=== PATIENT | male | born 1950 | race Caucasian/White ===

== ENCOUNTER 2018-10-07 09:19 | Inpatient (IN) | payer MEDICARE, OTHER ==
[2018-10-07 09:50] LABS: BASO % 0.4 % (0.0-1.0); EOS # 0.1 10^3/uL (0.0-0.50); EOS % 1.7 % (0.0-3.0); HEMATOCRIT 48.1 % (42.0-52.0); HEMOGLOBIN 16.2 g/dl (13.5-17.5); IMMATURE GRANULOCYTE % 0.4 % (0-3.0); LYMPH # 1.6 10^3/uL (1.5-4.5); MEAN CORPUSCULAR HGB CONC 33.7 g/dl (32.0-36.5); MEAN CORPUSCULAR VOLUME 92.1 fl (80.0-96.0); MONO # 0.5 10^3/uL (0.0-0.8); MONO % 6.7 % (0.0-5.0); NEUTROPHILS # 5.2 10^3/uL (1.8-7.7); NEUTROPHILS % 69.8 % (36.0-66.0); PLATELET COUNT, AUTOMATED 269 10^3/uL (150-450); RED BLOOD COUNT 5.22 10^6/uL (4.30-6.10); RED CELL DISTRIBUTION WIDTH 13.1 % (11.5-14.5); WHITE BLOOD COUNT 7.4 10^3/uL (4.0-10.0)
[2018-10-07] MEDS: methylPREDNISolone INJ 125 MG/2 ML VIAL (J2930) IV ×2 (10:18→17:08)
[2018-10-07] MEDS: IPRATROPIUM 0.5MG/ALBUTEROL 2.5MG INH SOL UD 3ML (DUONEB)(J7620) NEB ×5 (10:20→20:00)
[2018-10-07 10:26] LABS: ABG BASE EXCESS 2.2 (-2.0-2.0); ABG HCO3 27.9 MEQ/L (22.0-26.0); ABG O2 SATURATION 94.1 % (95.0-99.0); ABG PARTIAL PRESSURE CO2 47.1 mmHg (35.0-45.0); ABG PARTIAL PRESSURE O2 67.1 mmHg (75.0-100.0); ABG STANDARD HCO3 26.3 MEQ/L (22.0-26.0); ABG TOTAL CO2 29.4 MEQ/L (23.0-31.0); ABG pH (ARTERIAL) 7.391 UNITS (7.350-7.450)
[2018-10-07 10:55] LABS: ANION GAP 5 MEQ/L (8-16); BLOOD UREA NITROGEN 13 MG/DL (7-18); CALCIUM LEVEL 9.3 MG/DL (8.8-10.2); CARBON DIOXIDE LEVEL 31 MEQ/L (21-32); CHLORIDE LEVEL 105 MEQ/L (98-107); CPK CREATINE PHOSPHOKINASE 152 U/L (39-308); CREATININE FOR GFR 0.93 MG/DL (0.70-1.30); GLOMERULAR FILTRATION RATE > 60.0 (>49); GLUCOSE, FASTING 88 MG/DL (70-100); MB/CK RELATIVE INDEX 2.43 (< OR =4); NT-PRO BNP 312 PG/ML (<125); POTASSIUM SERUM 4.1 MEQ/L (3.5-5.1); SODIUM LEVEL 141 MEQ/L (136-145); TROPONIN I < 0.02 NG/ML (< 0.10)
[2018-10-07] MEDS ORDERED: ISOVUE-370 76% 100ML VIAL (Q9967) As Ordered (11:44)
[2018-10-07] MEDS ORDERED: IPRATROPIUM 0.5MG/ALBUTEROL 2.5MG INH SOL UD 3ML (DUONEB)(J7620) NEB (14:00)
[2018-10-07] MEDS: SERTRALINE HCL 50 MG TAB PO (15:35)
[2018-10-07] MEDS: ASPIRIN 81 MG ENTERIC TAB PO (15:35)
[2018-10-07] MEDS: LEVOTHYROXINE 50MCG TABLET (0.05MG) PO (15:45)
[2018-10-07] MEDS: OMEPRAZOLE 20 MG CAP PO (15:46)
[2018-10-07] MEDS: FUROSEMIDE 40 MG TAB PO (15:46)
[2018-10-07] MEDS: TAMSULOSIN 0.4 MG CAP PO (15:46)
[2018-10-07] MEDS: ATORVASTATIN 20 MG TAB PO (15:46)
[2018-10-07] MEDS: LISINOPRIL 20 MG TAB PO (15:46)
[2018-10-07] MEDS: cefTRIAXone SOD 1 GM in D5W MINI-BAG PLUS 50 ML IV (15:47)
[2018-10-07] MEDS: ENOXAPARIN 40 MG/0.4 ML SYRINGE (J1650) SC (15:47)
[2018-10-07] MEDS: AZITHROMYCIN INJ 500 MG, VIAL MATE ADAPTER 1 EACH in D5W 250 ML IV (17:06)
[2018-10-07 18:37] LABS: CPK CREATINE PHOSPHOKINASE 112 U/L (39-308); MB/CK RELATIVE INDEX 2.68 (< OR =4); TROPONIN I < 0.02 NG/ML (< 0.10)
[2018-10-07] MEDS: METOPROLOL TART 25 MG TABLET PO (20:37)
[2018-10-07] MEDS: SYMBICORT 160/4.5MCG INHALER 6GM INH (21:25)
[2018-10-08] MEDS: CALCIUM CARBONATE 500 MG CHEW U/D PO (00:52)
[2018-10-08] MEDS: OMEPRAZOLE 20 MG CAP PO ×2 (00:52→09:16)
[2018-10-08] MEDS: IPRATROPIUM 0.5MG/ALBUTEROL 2.5MG INH SOL UD 3ML (DUONEB)(J7620) NEB ×4 (01:05→19:41)
[2018-10-08 02:23] LABS: CPK CREATINE PHOSPHOKINASE 119 U/L (39-308); MB/CK RELATIVE INDEX 2.27 (< OR =4); TROPONIN I < 0.02 NG/ML (< 0.10)
[2018-10-08] MEDS: methylPREDNISolone INJ 125 MG/2 ML VIAL (J2930) IV (02:28)
[2018-10-08] MEDS: cefTRIAXone SOD 1 GM in D5W MINI-BAG PLUS 50 ML IV ×2 (04:36→15:41)
[2018-10-08] MEDS: LEVOTHYROXINE 50MCG TABLET (0.05MG) PO (05:57)
[2018-10-08 06:35] LABS: BASO % 0.1 % (0.0-1.0); HEMATOCRIT 44.6 % (42.0-52.0); HEMOGLOBIN 15.2 g/dl (13.5-17.5); IMMATURE GRANULOCYTE % 0.5 % (0-3.0); LYMPH # 1.2 10^3/uL (1.5-4.5); LYMPH % 6.1 % (24.0-44.0); MEAN CORPUSCULAR HEMOGLOBIN 30.8 pg (27.0-33.0); MEAN CORPUSCULAR HGB CONC 34.1 g/dl (32.0-36.5); MEAN CORPUSCULAR VOLUME 90.5 fl (80.0-96.0); MONO # 0.3 10^3/uL (0.0-0.8); MONO % 1.5 % (0.0-5.0); NEUTROPHILS # 17.9 10^3/uL (1.8-7.7); NEUTROPHILS % 91.8 % (36.0-66.0); PLATELET COUNT, AUTOMATED 298 10^3/uL (150-450); RED BLOOD COUNT 4.93 10^6/uL (4.30-6.10); RED CELL DISTRIBUTION WIDTH 13.3 % (11.5-14.5); WHITE BLOOD COUNT 19.5 10^3/uL (4.0-10.0)
[2018-10-08 06:59] LABS: ALBUMIN 3.4 GM/DL (3.2-5.2); ALBUMIN/GLOBULIN RATIO 0.97 (1.00-1.93); ALKALINE PHOSPHATASE 126 U/L (45-117); ALT/SGPT 25 U/L (12-78); ANION GAP 9 MEQ/L (8-16); AST/SGOT 13 U/L (7-37); BILIRUBIN,TOTAL 0.3 MG/DL (0.2-1.0); BLOOD UREA NITROGEN 13 MG/DL (7-18); CALCIUM LEVEL 9.1 MG/DL (8.8-10.2); CARBON DIOXIDE LEVEL 25 MEQ/L (21-32); CHLORIDE LEVEL 106 MEQ/L (98-107); CREATININE FOR GFR 0.92 MG/DL (0.70-1.30); GLOMERULAR FILTRATION RATE > 60.0 (>49); GLUCOSE, FASTING 160 MG/DL (70-100); POTASSIUM SERUM 4.3 MEQ/L (3.5-5.1); SODIUM LEVEL 140 MEQ/L (136-145); TOTAL PROTEIN 6.9 GM/DL (6.4-8.2)
[2018-10-08] MEDS: SYMBICORT 160/4.5MCG INHALER 6GM INH ×2 (08:06→19:49)
[2018-10-08] MEDS: ENOXAPARIN 40 MG/0.4 ML SYRINGE (J1650) SC (09:15)
[2018-10-08] MEDS: ATORVASTATIN 20 MG TAB PO (09:16)
[2018-10-08] MEDS: ASPIRIN 81 MG ENTERIC TAB PO (09:16)
[2018-10-08] MEDS: SERTRALINE HCL 50 MG TAB PO (09:16)
[2018-10-08] MEDS: TAMSULOSIN 0.4 MG CAP PO (09:16)
[2018-10-08] MEDS: METOPROLOL TART 25 MG TABLET PO ×2 (09:19→21:00)
[2018-10-08] MEDS: LISINOPRIL 20 MG TAB PO (09:19)
[2018-10-08] MEDS ORDERED: GI COCKTAIL 50ML BTL(HYOSCYAMINE/MAALOX/LIDOCAINE VISCOUS)(1:3:1) PO (10:45)
[2018-10-08] MEDS: methylPREDNISolone INJ 40 MG/1 ML VIAL (J2920) IV (14:15)
[2018-10-08] MEDS: AZITHROMYCIN INJ 500 MG, VIAL MATE ADAPTER 1 EACH in D5W 250 ML IV (16:22)
[2018-10-08] MEDS ORDERED: PILL CRUSHER/CUTTER 1 EACH XX (20:45)
[2018-10-09] MEDS: IPRATROPIUM 0.5MG/ALBUTEROL 2.5MG INH SOL UD 3ML (DUONEB)(J7620) NEB ×4 (02:19→20:00)
[2018-10-09] MEDS: methylPREDNISolone INJ 40 MG/1 ML VIAL (J2920) IV ×2 (02:22→14:41)
[2018-10-09] MEDS: LEVOTHYROXINE 50MCG TABLET (0.05MG) PO (05:54)
[2018-10-09 07:00] LABS: BASO % 0.1 % (0.0-1.0); EOS % 0.1 % (0.0-3.0); HEMATOCRIT 43.5 % (42.0-52.0); HEMOGLOBIN 14.5 g/dl (13.5-17.5); IMMATURE GRANULOCYTE % 0.5 % (0-3.0); LYMPH # 1.2 10^3/uL (1.5-4.5); LYMPH % 6.9 % (24.0-44.0); MEAN CORPUSCULAR HEMOGLOBIN 30.6 pg (27.0-33.0); MEAN CORPUSCULAR HGB CONC 33.3 g/dl (32.0-36.5); MEAN CORPUSCULAR VOLUME 91.8 fl (80.0-96.0); MONO # 0.4 10^3/uL (0.0-0.8); MONO % 2.1 % (0.0-5.0); NEUTROPHILS # 15.7 10^3/uL (1.8-7.7); NEUTROPHILS % 90.3 % (36.0-66.0); PLATELET COUNT, AUTOMATED 267 10^3/uL (150-450); RED BLOOD COUNT 4.74 10^6/uL (4.30-6.10); RED CELL DISTRIBUTION WIDTH 13.6 % (11.5-14.5); WHITE BLOOD COUNT 17.4 10^3/uL (4.0-10.0)
[2018-10-09 07:25] LABS: ALBUMIN 3.3 GM/DL (3.2-5.2); ALBUMIN/GLOBULIN RATIO 1.06 (1.00-1.93); ALKALINE PHOSPHATASE 108 U/L (45-117); ALT/SGPT 23 U/L (12-78); ANION GAP 6 MEQ/L (8-16); AST/SGOT 15 U/L (7-37); BILIRUBIN,TOTAL 0.3 MG/DL (0.2-1.0); BLOOD UREA NITROGEN 15 MG/DL (7-18); CALCIUM LEVEL 8.9 MG/DL (8.8-10.2); CARBON DIOXIDE LEVEL 26 MEQ/L (21-32); CHLORIDE LEVEL 107 MEQ/L (98-107); CREATININE FOR GFR 0.93 MG/DL (0.70-1.30); GLOMERULAR FILTRATION RATE > 60.0 (>49); GLUCOSE, FASTING 140 MG/DL (70-100); POTASSIUM SERUM 3.8 MEQ/L (3.5-5.1); SODIUM LEVEL 139 MEQ/L (136-145); TOTAL PROTEIN 6.4 GM/DL (6.4-8.2)
[2018-10-09] MEDS: ATORVASTATIN 20 MG TAB PO (08:53)
[2018-10-09] MEDS: LISINOPRIL 20 MG TAB PO (08:53)
[2018-10-09] MEDS: TAMSULOSIN 0.4 MG CAP PO (08:54)
[2018-10-09] MEDS: METOPROLOL TART 25 MG TABLET PO ×2 (08:54→20:51)
[2018-10-09] MEDS: ASPIRIN 81 MG ENTERIC TAB PO (08:54)
[2018-10-09] MEDS: SERTRALINE HCL 50 MG TAB PO (08:54)
[2018-10-09] MEDS: OMEPRAZOLE 20 MG CAP PO (08:54)
[2018-10-09] MEDS: ENOXAPARIN 40 MG/0.4 ML SYRINGE (J1650) SC (08:55)
[2018-10-09] MEDS: SYMBICORT 160/4.5MCG INHALER 6GM INH ×2 (09:34→21:10)
[2018-10-09] MEDS: guaiFENesin ER 600 MG TAB PO ×2 (12:32→20:51)
[2018-10-09] MEDS: FUROSEMIDE 40 MG/4 ML VIAL (J1940) IV (12:33)
[2018-10-09] MEDS: AZITHROMYCIN INJ 500 MG, VIAL MATE ADAPTER 1 EACH in D5W 250 ML IV (17:17)
[2018-10-10] MEDS: IPRATROPIUM 0.5MG/ALBUTEROL 2.5MG INH SOL UD 3ML (DUONEB)(J7620) NEB ×5 (02:00→21:35)
[2018-10-10] MEDS: methylPREDNISolone INJ 40 MG/1 ML VIAL (J2920) IV ×2 (02:24→14:52)
[2018-10-10] MEDS: LEVOTHYROXINE 50MCG TABLET (0.05MG) PO (05:58)
[2018-10-10 06:47] LABS: BASO % 0.1 % (0.0-1.0); HEMOGLOBIN 15.6 g/dl (13.5-17.5); IMMATURE GRANULOCYTE % 0.6 % (0-3.0); LYMPH # 1.4 10^3/uL (1.5-4.5); MEAN CORPUSCULAR HEMOGLOBIN 31.2 pg (27.0-33.0); MEAN CORPUSCULAR HGB CONC 33.2 g/dl (32.0-36.5); MONO # 0.5 10^3/uL (0.0-0.8); MONO % 3.1 % (0.0-5.0); NEUTROPHILS # 13.4 10^3/uL (1.8-7.7); NEUTROPHILS % 87.2 % (36.0-66.0); PLATELET COUNT, AUTOMATED 272 10^3/uL (150-450); RED CELL DISTRIBUTION WIDTH 13.7 % (11.5-14.5); WHITE BLOOD COUNT 15.3 10^3/uL (4.0-10.0)
[2018-10-10 07:18] LABS: ALBUMIN 3.4 GM/DL (3.2-5.2); ALBUMIN/GLOBULIN RATIO 1.03 (1.00-1.93); ALKALINE PHOSPHATASE 111 U/L (45-117); ALT/SGPT 26 U/L (12-78); ANION GAP 5 MEQ/L (8-16); AST/SGOT 13 U/L (7-37); BILIRUBIN,TOTAL 0.4 MG/DL (0.2-1.0); BLOOD UREA NITROGEN 23 MG/DL (7-18); CARBON DIOXIDE LEVEL 32 MEQ/L (21-32); CHLORIDE LEVEL 104 MEQ/L (98-107); CREATININE FOR GFR 0.98 MG/DL (0.70-1.30); GLOMERULAR FILTRATION RATE > 60.0 (>49); GLUCOSE, FASTING 118 MG/DL (70-100); POTASSIUM SERUM 4.4 MEQ/L (3.5-5.1); SODIUM LEVEL 141 MEQ/L (136-145); TOTAL PROTEIN 6.7 GM/DL (6.4-8.2)
[2018-10-10] MEDS: SYMBICORT 160/4.5MCG INHALER 6GM INH ×2 (07:29→19:42)
[2018-10-10] MEDS: ASPIRIN 81 MG ENTERIC TAB PO (08:57)
[2018-10-10] MEDS: ATORVASTATIN 20 MG TAB PO (08:57)
[2018-10-10] MEDS: TAMSULOSIN 0.4 MG CAP PO (08:57)
[2018-10-10] MEDS: LISINOPRIL 20 MG TAB PO (09:01)
[2018-10-10] MEDS: OMEPRAZOLE 20 MG CAP PO (09:01)
[2018-10-10] MEDS: guaiFENesin ER 600 MG TAB PO ×2 (09:01→21:14)
[2018-10-10] MEDS: METOPROLOL TART 25 MG TABLET PO ×2 (09:01→21:14)
[2018-10-10] MEDS: ENOXAPARIN 40 MG/0.4 ML SYRINGE (J1650) SC (09:02)
[2018-10-10] MEDS: SERTRALINE HCL 50 MG TAB PO (09:02)
[2018-10-10] MEDS: AZITHROMYCIN INJ 500 MG, VIAL MATE ADAPTER 1 EACH in D5W 250 ML IV (16:47)
[2018-10-11] MEDS: methylPREDNISolone INJ 40 MG/1 ML VIAL (J2920) IV (02:49)
[2018-10-11] MEDS: LEVOTHYROXINE 50MCG TABLET (0.05MG) PO (06:37)
[2018-10-11 07:11] LABS: BASO % 0.1 % (0.0-1.0); EOS % 0.2 % (0.0-3.0); HEMATOCRIT 46.5 % (42.0-52.0); HEMOGLOBIN 15.8 g/dl (13.5-17.5); IMMATURE GRANULOCYTE % 0.4 % (0-3.0); LYMPH # 1.3 10^3/uL (1.5-4.5); LYMPH % 9.9 % (24.0-44.0); MEAN CORPUSCULAR HEMOGLOBIN 31.2 pg (27.0-33.0); MEAN CORPUSCULAR VOLUME 91.9 fl (80.0-96.0); MONO # 0.4 10^3/uL (0.0-0.8); MONO % 3.1 % (0.0-5.0); NEUTROPHILS # 11.6 10^3/uL (1.8-7.7); NEUTROPHILS % 86.3 % (36.0-66.0); PLATELET COUNT, AUTOMATED 277 10^3/uL (150-450); RED BLOOD COUNT 5.06 10^6/uL (4.30-6.10); RED CELL DISTRIBUTION WIDTH 13.6 % (11.5-14.5); WHITE BLOOD COUNT 13.4 10^3/uL (4.0-10.0)
[2018-10-11 07:36] LABS: ALBUMIN 3.3 GM/DL (3.2-5.2); ALBUMIN/GLOBULIN RATIO 1.03 (1.00-1.93); ALKALINE PHOSPHATASE 110 U/L (45-117); ALT/SGPT 29 U/L (12-78); ANION GAP 6 MEQ/L (8-16); AST/SGOT 10 U/L (7-37); BILIRUBIN,TOTAL 0.6 MG/DL (0.2-1.0); BLOOD UREA NITROGEN 23 MG/DL (7-18); CALCIUM LEVEL 8.4 MG/DL (8.8-10.2); CARBON DIOXIDE LEVEL 28 MEQ/L (21-32); CHLORIDE LEVEL 108 MEQ/L (98-107); CREATININE FOR GFR 0.95 MG/DL (0.70-1.30); GLOMERULAR FILTRATION RATE > 60.0 (>49); GLUCOSE, FASTING 112 MG/DL (70-100); SODIUM LEVEL 142 MEQ/L (136-145); TOTAL PROTEIN 6.5 GM/DL (6.4-8.2)
[2018-10-11] MEDS: IPRATROPIUM 0.5MG/ALBUTEROL 2.5MG INH SOL UD 3ML (DUONEB)(J7620) NEB ×3 (07:40→20:08)
[2018-10-11] MEDS: SYMBICORT 160/4.5MCG INHALER 6GM INH ×2 (07:41→20:08)
[2018-10-11] MEDS: FUROSEMIDE 20 MG/2 ML VIAL (J1940) IV (09:17)
[2018-10-11] MEDS: ENOXAPARIN 40 MG/0.4 ML SYRINGE (J1650) SC (09:18)
[2018-10-11] MEDS: ATORVASTATIN 20 MG TAB PO (09:18)
[2018-10-11] MEDS: METOPROLOL TART 25 MG TABLET PO ×2 (09:22→20:20)
[2018-10-11] MEDS: TAMSULOSIN 0.4 MG CAP PO (09:23)
[2018-10-11] MEDS: SERTRALINE HCL 50 MG TAB PO (09:23)
[2018-10-11] MEDS: predniSONE 20 MG TAB PO ×2 (09:23→20:19)
[2018-10-11] MEDS: ASPIRIN 81 MG ENTERIC TAB PO (09:23)
[2018-10-11] MEDS: OMEPRAZOLE 20 MG CAP PO (09:23)
[2018-10-11] MEDS: LISINOPRIL 20 MG TAB PO (09:24)
[2018-10-11] MEDS: guaiFENesin ER 600 MG TAB PO ×2 (09:24→20:20)
[2018-10-11] MEDS: AZITHROMYCIN INJ 500 MG, VIAL MATE ADAPTER 1 EACH in D5W 250 ML IV (17:34)
[2018-10-11] MEDS: POLYVINYL ALCOHOL OPHTH SOLN 15 ML(LIQUITEARS) OU (20:30)
[2018-10-12] MEDS: LEVOTHYROXINE 50MCG TABLET (0.05MG) PO (06:27)
[2018-10-12 06:45] LABS: BASO % 0.1 % (0.0-1.0); HEMATOCRIT 48.2 % (42.0-52.0); HEMOGLOBIN 16.4 g/dl (13.5-17.5); IMMATURE GRANULOCYTE % 0.6 % (0-3.0); LYMPH # 1.6 10^3/uL (1.5-4.5); LYMPH % 11.5 % (24.0-44.0); MEAN CORPUSCULAR HEMOGLOBIN 31.4 pg (27.0-33.0); MEAN CORPUSCULAR VOLUME 92.3 fl (80.0-96.0); MONO # 0.6 10^3/uL (0.0-0.8); MONO % 4.4 % (0.0-5.0); NEUTROPHILS # 11.6 10^3/uL (1.8-7.7); NEUTROPHILS % 83.4 % (36.0-66.0); PLATELET COUNT, AUTOMATED 260 10^3/uL (150-450); RED BLOOD COUNT 5.22 10^6/uL (4.30-6.10); RED CELL DISTRIBUTION WIDTH 13.3 % (11.5-14.5); WHITE BLOOD COUNT 13.9 10^3/uL (4.0-10.0)
[2018-10-12 07:15] LABS: ALBUMIN 3.3 GM/DL (3.2-5.2); ALBUMIN/GLOBULIN RATIO 1.18 (1.00-1.93); ALKALINE PHOSPHATASE 112 U/L (45-117); ALT/SGPT 29 U/L (12-78); ANION GAP 8 MEQ/L (8-16); AST/SGOT 9 U/L (7-37); BILIRUBIN,TOTAL 0.4 MG/DL (0.2-1.0); BLOOD UREA NITROGEN 23 MG/DL (7-18); CALCIUM LEVEL 8.3 MG/DL (8.8-10.2); CARBON DIOXIDE LEVEL 26 MEQ/L (21-32); CHLORIDE LEVEL 109 MEQ/L (98-107); CREATININE FOR GFR 1.01 MG/DL (0.70-1.30); GLOMERULAR FILTRATION RATE > 60.0 (>49); GLUCOSE, FASTING 111 MG/DL (70-100); POTASSIUM SERUM 4.3 MEQ/L (3.5-5.1); SODIUM LEVEL 143 MEQ/L (136-145); TOTAL PROTEIN 6.1 GM/DL (6.4-8.2)
[2018-10-12] MEDS: SYMBICORT 160/4.5MCG INHALER 6GM INH (07:29)
[2018-10-12] MEDS: IPRATROPIUM 0.5MG/ALBUTEROL 2.5MG INH SOL UD 3ML (DUONEB)(J7620) NEB (07:29)
[2018-10-12] MEDS: POLYVINYL ALCOHOL OPHTH SOLN 15 ML(LIQUITEARS) OU (08:50)
[2018-10-12] MEDS: ATORVASTATIN 20 MG TAB PO (08:51)
[2018-10-12] MEDS: guaiFENesin ER 600 MG TAB PO (08:52)
[2018-10-12] MEDS: ACETAMINOPHEN TAB 650MG DOSE (2X325MG) PO (08:52)
[2018-10-12] MEDS: ASPIRIN 81 MG ENTERIC TAB PO (08:52)
[2018-10-12] MEDS: predniSONE 20 MG TAB PO (08:52)
[2018-10-12] MEDS: TAMSULOSIN 0.4 MG CAP PO (08:52)
[2018-10-12] MEDS: SERTRALINE HCL 50 MG TAB PO (08:53)
[2018-10-12] MEDS: METOPROLOL TART 25 MG TABLET PO (08:59)
[2018-10-12] MEDS: LISINOPRIL 20 MG TAB PO (08:59)
[2018-10-12] MEDS: ENOXAPARIN 40 MG/0.4 ML SYRINGE (J1650) SC (09:00)
[2018-10-12] MEDS: OMEPRAZOLE 20 MG CAP PO (09:00)
== END 2018-10-12 11:00 | disposition home or self-care (01) | DRG 191 ==
LOC: M PED 10-08 18:35 → M ED 09:19 → M ED INP 14:00 → M MSPAV 15:19
DX: J44.1 Chronic obstructive pulmonary disease with (acute) exacerbation (principal); I50.30 Unspecified diastolic (congestive) heart failure; Z68.41 Body mass index [BMI] 40.0-44.9, adult; I11.0 Hypertensive heart disease with heart failure; E66.9 Obesity, unspecified; K21.9 Gastro-esophageal reflux disease without esophagitis; F17.210 Nicotine dependence, cigarettes, uncomplicated; E03.9 Hypothyroidism, unspecified; F32.9 Major depressive disorder, single episode, unspecified; I25.10 Atherosclerotic heart disease of native coronary artery without angina pectoris; N40.0 Benign prostatic hyperplasia without lower urinary tract symptoms; E78.5 Hyperlipidemia, unspecified; G47.33 Obstructive sleep apnea (adult) (pediatric); Z86.718 Personal history of other venous thrombosis and embolism; Z95.9 Presence of cardiac and vascular implant and graft, unspecified; Z79.51 Long term (current) use of inhaled steroids; Z79.82 Long term (current) use of aspirin; Z79.899 Other long term (current) drug therapy

== ENCOUNTER 2019-03-10 08:37 | Emergency (ER) | payer MEDICARE, OTHER ==
[~2019-03-10] VITALS: Ht 172.7 cm; Wt 118.2 kg
[~2019-03-10 08:37] MED LIST: ALBU0.084 INH; ASPI81TA24 PO; ASPI81TA26 PO; ATOR80TA59 PO; CETI10TA PO; COMBAER6 INH; FLOM0.4C39 PO; FURO40TA2 PO; IBUP80TA PO; LEVO50TA5 PO; LIPI1TAB2 PO; LISI-538 PO; LISI40TA PO; METO-1 PO; METO1TAB32 PO; METO25TA4 PO; NEUR600T PO; OMEP20CA3 PO; PRED10TA2 PO; PRIL20CA PO; PROSCAR PO; SERT-138 PO; SYMB16INH INH; TYLE325T5 PO; VENTAER INH; ZOLO50TA PO
[2019-03-10] MEDS ORDERED: methylPREDNISolone INJ 125 MG/2 ML VIAL (J2930) IV ONE (09:00)
[2019-03-10] MEDS: IPRATROPIUM 0.5MG/ALBUTEROL 2.5MG INH SOL UD 3ML (DUONEB)(J7620) NEB PRN ×3 (09:16→09:54)
[2019-03-10 09:22] LABS: ABG HCO3 26.6 MEQ/L (22.0-26.0); ABG PARTIAL PRESSURE CO2 41.5 mmHg (35.0-45.0); ABG PARTIAL PRESSURE O2 75.3 mmHg (75.0-100.0); ABG STANDARD HCO3 26.2 MEQ/L (22.0-26.0); ABG TOTAL CO2 27.9 MEQ/L (23.0-31.0); ABG pH (ARTERIAL) 7.425 UNITS (7.350-7.450)
--- NOTE | 2019-03-10 09:41 | REP ---
Portable chest, 09:19 a.m., single AP semi upright view: Comparison is the PA and lateral chest dated 10/07/2018. Cardiac size appears enlarged as an interval change, however, there is magnification from portable positioning. Lung carballo are clear. The triny, mediastinum, skeletal structures are unchanged. There is bilateral shoulder osteoarthritis, unchanged. Impression: Questionable cardiomegaly versus artifact from portable positioning. Otherwise, no interval change. Electronically Signed by Curtis Prater MD 03/10/2019 09:32 A
[2019-03-10 10:23] LABS: BASO % 0.5 % (0.0-1.0); EOS # 0.1 10^3/uL (0.0-0.50); EOS % 0.9 % (0.0-3.0); HEMATOCRIT 46.9 % (42.0-52.0); HEMOGLOBIN 15.7 g/dl (13.5-17.5); LYMPH # 2.5 10^3/uL (1.5-4.5); LYMPH % 29.5 % (24.0-44.0); MEAN CORPUSCULAR HEMOGLOBIN 30.5 pg (27.0-33.0); MEAN CORPUSCULAR HGB CONC 33.5 g/dl (32.0-36.5); MEAN CORPUSCULAR VOLUME 91.1 fl (80.0-96.0); MONO # 0.5 10^3/uL (0.0-0.8); MONO % 5.8 % (0.0-5.0); NEUTROPHILS # 5.4 10^3/uL (1.8-7.7); NEUTROPHILS % 62.9 % (36.0-66.0); PLATELET COUNT, AUTOMATED 241 10^3/uL (150-450); RED BLOOD COUNT 5.15 10^6/uL (4.30-6.10); WHITE BLOOD COUNT 8.5 10^3/uL (4.0-10.0)
[2019-03-10 10:48] LABS: BLOOD UREA NITROGEN 11 MG/DL (7-18); CALCIUM LEVEL 8.6 MG/DL (8.8-10.2); CARBON DIOXIDE LEVEL 27 MEQ/L (21-32); CHLORIDE LEVEL 108 MEQ/L (98-107); CPK CREATINE PHOSPHOKINASE 237 U/L (39-308); CREATININE FOR GFR 0.88 MG/DL (0.70-1.30); GLOMERULAR FILTRATION RATE > 60.0 (>49); GLUCOSE, FASTING 98 MG/DL (70-100); NT-PRO BNP 328 PG/ML (<125); SODIUM LEVEL 140 MEQ/L (136-145); TROPONIN I < 0.02 NG/ML (< 0.10)
[2019-03-10 11:16] VITALS: O2SAT 95
[2019-03-10] MEDS ORDERED: DOXY100C37 PO (11:42)
[2019-03-10] MEDS ORDERED: PRED10TA2 PO (11:42)
[2019-03-10 12:00] VITALS: BP 131/70
--- NOTE | 2019-03-11 08:10 | ECGEPIP ---
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
== END 2019-03-10 12:25 | disposition home or self-care (01) ==
LOC: M ED 08:37 → EDBD 08:37 → M ED 12:25
DX: J44.1 Chronic obstructive pulmonary disease with (acute) exacerbation (principal); G47.30 Sleep apnea, unspecified; N40.0 Benign prostatic hyperplasia without lower urinary tract symptoms; I10 Essential (primary) hypertension; E78.5 Hyperlipidemia, unspecified; Z95.5 Presence of coronary angioplasty implant and graft; Z87.891 Personal history of nicotine dependence; Z79.82 Long term (current) use of aspirin; Z79.899 Other long term (current) drug therapy
CPT/HCPCS: 36415; 36600; 71045; 80048; 82550; 82553; 82803; 83605; 83880; 84443; 84484; 85025; 87040; 93005; 93041; 94640; 96374; 99285; J2930

== ENCOUNTER 2020-06-20 19:16 | Inpatient (IN) | payer MEDICARE, OTHER ==
[~2020-06-20] VITALS: Ht 170.2 cm; Wt 111.2 kg
[~2020-06-20 19:16] MED LIST changes: +DOXY100C37 PO; +OMEP1CAP73 PO; -OMEP20CA3 PO
--- NOTE | 2020-06-20 19:48 | REPVR ---
PROCEDURE INFORMATION: Exam: CT Head Without Contrast Exam date and time: 06/20/2020 7:32 PM Age: 70 years old Clinical indication: Speech disturbance; Slurred speech; Additional info: Neuro SX TECHNIQUE: Imaging protocol: Computed tomography of the head without contrast. Radiation optimization: All CT scans at this facility use at least one of these dose optimization techniques: automated exposure control; mA and/or kV adjustment per patient size (includes targeted exams where dose is matched to clinical indication); or iterative reconstruction. COMPARISON: No relevant prior studies available. FINDINGS: Brain: No intracranial hemorrhage or extra-axial fluid collection. No evidence of mass effect or midline shift. Smith-white matter differentiation is intact. Ventricles: No ventriculomegaly. Bones/joints: No acute osseus lesion or fracture. Sinuses: Unremarkable as visualized. Mastoid air cells: Partial opacification of inferior left mastoid air cells. Soft tissues: Unremarkable. IMPRESSION: 1. No acute intracranial pathology. ASPECTS score 10. 2. Partial opacification of inferior left mastoid air cells. Electronically signed by: Romero Aj On 06/20/2020 19:48:23 PM
[2020-06-20 20:12] LABS: BASO % 0.3 % (0.0-1.0); EOS # 0.1 10^3/uL (0.0-0.5); EOS % 1.1 % (0.0-3.0); HEMATOCRIT 45.4 % (42.0-52.0); HEMOGLOBIN 15.2 g/dl (13.5-17.5); LYMPH # 2.1 10^3/uL (1.5-5.0); LYMPH % 19.7 % (24.0-44.0); MEAN CORPUSCULAR HEMOGLOBIN 31.1 pg (27.0-33.0); MEAN CORPUSCULAR HGB CONC 33.5 g/dl (32.0-36.5); MEAN CORPUSCULAR VOLUME 92.8 fl (80.0-96.0); MONO # 0.8 10^3/uL (0.0-0.8); MONO % 7.2 % (0.0-5.0); NEUTROPHILS # 7.6 10^3/uL (1.5-8.5); PLATELET COUNT, AUTOMATED 242 10^3/uL (150-450); RED BLOOD COUNT 4.89 10^6/uL (4.30-6.10); WHITE BLOOD COUNT 10.7 10^3/uL (4.0-10.0)
[2020-06-20 20:23] LABS: INR 1.04; PROTHROMBIN TIME 13.3 SECONDS (11.8-14.0)
[2020-06-20 20:34] LABS: ALBUMIN 3.3 GM/DL (3.2-5.2); ALT/SGPT 27 U/L (12-78); BILIRUBIN,DIRECT 0.1 MG/DL (0.0-0.2); BILIRUBIN,TOTAL 0.3 MG/DL (0.2-1.0); BLOOD UREA NITROGEN 22 MG/DL (7-18); CALCIUM LEVEL 8.9 MG/DL (8.8-10.2); CARBON DIOXIDE LEVEL 30 MEQ/L (21-32); CHLORIDE LEVEL 104 MEQ/L (98-107); CK-MB VALUE MASS 2.2 NG/ML (<3.6); CPK CREATINE PHOSPHOKINASE 60 U/L (39-308); CREATININE FOR GFR 1.05 MG/DL (0.70-1.30); GLOMERULAR FILTRATION RATE > 60.0 (>49); GLUCOSE, FASTING 88 MG/DL (70-100); LIPASE 168 U/L (73-393); MB/CK RELATIVE INDEX 3.67 (< OR =4); POTASSIUM SERUM 4.2 MEQ/L (3.5-5.1); SODIUM LEVEL 142 MEQ/L (136-145); TOTAL PROTEIN 6.3 GM/DL (6.4-8.2); TROPONIN I < 0.02 NG/ML (< 0.10)
[2020-06-20] MEDS ORDERED: dexameTHASONE 20MG/5ML VIAL (J1100 PER 1MG) IV ONE (22:00)
[2020-06-20] MEDS: COMBIVENT RESPIMAT 100-20MCG INHALER 4GM INH SCH ×3 (22:13→23:20)
[2020-06-21] MEDS ORDERED: CARV3.12 PO (00:42)
[2020-06-21] MEDS ORDERED: AMIO200T3 PO (00:42)
[2020-06-21] MEDS ORDERED: ENOX40IN3 SC (00:42)
[2020-06-21] MEDS ORDERED: IPRA0.00 INH (00:42)
[2020-06-21] MEDS ORDERED: ACETAMINOPHEN TAB 650MG DOSE (2X325MG) PO PRN (01:15)
--- NOTE | 2020-06-21 01:27 | HPEPDOC ---
General Date of Admission Jun 21, 2020 at 01:09 Date of Service: Jun 21, 2020 Chief Complaint The patient is a 70-year-old male Who presented to the hospital with complaints of brief loss of memory History of Present Illness Patient is a 70-year-old male with a PMhx of COPD, JULIA on CPAP, RUE DVT (s/p Coumadin 6 months), CAD s/p stent (2014), HTN, DLP, BPH, Obesity, Depression, Hypothyroidism, who presented to the emergency room after he had a brief episode of memory loss. Patient reported at 4:00 this morning he had trouble logging into his computer and recalling the name service family members. Patient reported that his memory returned back to normal at 8 PM during this episode. He did experience left leg tingling that has resolved. At the insistence of his family, he has come to the emergency room for further evaluation. At this time, his symptoms have completely resolved. Currently patient denies any chest pain, shortness of breath, cough, fever, chills, nausea, vomiting, abdominal pain, the patient, diarrhea, or urinary discomfort Home Medications Scheduled Amiodarone HCl (Amiodarone HCl) 200 Mg Tablet, 200 MG PO DAILY, (Reported) Aspirin (Aspirin EC) 81 Mg Tab, 81 MG PO DAILY, (Reported) Atorvastatin Calcium (Atorvastatin Calcium) 80 Mg Tab, 40 MG PO DAILY, (Reported) Budesonide/Formoterol (Symbicort 160-4.5 Mcg Inhaler) 60 Puff/Inhaler Aers, 2 PUFF INH BID, (Reported) Carvedilol (Carvedilol) 3.125 Mg Tablet, 3.125 MG PO DAILY, (Reported) Enoxaparin Sodium (Enoxaparin Sodium) 40 Mg/0.4 Ml Syringe, 40 MG SC DAILY, (Reported) Furosemide (Furosemide) 40 Mg Tab, 40 MG PO BID, (Reported) Levothyroxine Sodium (Levothyroxine Sodium) 50 Mcg Tab, 50 MCG PO DAILY, (Reported) Lisinopril (Lisinopril) 40 Mg Tab, 20 MG PO DAILY, (Reported) Omeprazole (Omeprazole) 20 Mg Cap, 20 MG PO DAILY, (Reported) Sertraline HCl (Sertraline HCl) 100 Mg Tab, 150 MG PO DAILY, (Reported) Tamsulosin HCl (Flomax) 0.4 Mg Cap, 0.4 MG PO DAILY, (Reported) Scheduled PRN Albuterol Sulfate (Ventolin Hfa) 108 Mcg/Act Aer, 2 PUFF INH Q6H PRN for SHORTNESS OF BREATH, (Reported) Ipratropium/Albuterol Sulfate (Iprat-Albut 0.5-3(2.5) mg/3 ml) 3 Ml Ampul.neb, 3 ML INH QID PRN for SHORTNESS OF BREATH, (Reported) Allergies Coded Allergies: No Known Allergies (Unverified , 03/10/19) Past Medical History Medical History COPD, JULIA on CPAP, RUE DVT (s/p Coumadin 6 months), CAD s/p stent (2014), HTN, DLP, BPH, Obesity, Depression, Hypothyroidism Surgical History Cardiac stent placement 2015 Right carpal tunnel release Family History - Mother with a history of a brain tumor and father with a history of a heart attack Social History - Denies the use of illicit drugs; patient reports social alcohol use and quit smoking 2 years ago but was a smoker of 50 years at 2 [facility] - Denies recent travel or sick contacts - Lives with - Occupation; retired from construction Review of Systems Other systems 10 point review of systems complete, all negative otherwise stated in HPI Vital Signs - Vitals: BP [126/63], HR [62], RR [20], Sat [94%RA], Temp [97.9F] - General: Lying in bed, Speaking in full sentences, AAOx3 - HEENT: NC, AT, PERRLA, EOMI - CVS: RRR, +S1S2, - Lungs: Fair air entry bilaterally, No appreciable wheezing / rales / rhonchi - Abdomen: Soft, Non-distended, Non-tender, +Obese - Extremities: 1+ pitting edema, No calf tenderness - Neuro: No focal motor or sensory deficit - Skin: No visible rashes Laboratory Data Labs 24H Laboratory Tests 2 06/20/20 19:59: Immature Granulocyte % (Auto) 0.7, Neutrophils (%) (Auto) 71.0H, Lymphocytes (%) (Auto) 19.7L, Monocytes (%) (Auto) 7.2H, Eosinophils (%) (Auto) 1.1, Basophils (%) (Auto) 0.3, Neutrophils # (Auto) 7.6, Lymphocytes # (Auto) 2.1, Monocytes # (Auto) 0.8, Eosinophils # (Auto) 0.1, Basophils # (Auto) 0.0, Nucleated Red Blood Cells % (auto) 0.0, Prothrombin Time 13.3, Prothromb Time International Ratio 1.04, Anion Gap 8, Glomerular Filtration Rate > 60.0, Calcium Level 8.9, T otal Bilirubin 0.3, Direct Bilirubin 0.1, Aspartate Amino Transf (AST/SGOT) 14, Alanine Aminotransferase (ALT/SGPT) 27, Alkaline Phosphatase 134H, Total Creatine Kinase 60, Creatine Kinase MB 2.2, Creatine Kinase MB Relative Index 3.67, Troponin I < 0.02, Total Protein 6.3L, Albumin 3.3, Albumin/Globulin Ratio 1.1, Lipase 168 06/20/20 21:31: POC pH (Misc Panel) 7.436, POC Base Excess (Misc Panel) 5.0H, POC Saturated Percent O2 (Misc) 94L, POC pO2 (Misc Panel) 67.0L, POC pCO2 (Misc Panel) 44.0, POC HCO3 (Misc Panel) 29.6H, POC Total CO2 (Misc Panel) 31.0H CBC/BMP Laboratory Tests 06/20/20 19:59 Plan / VTE VTE Prophylaxis Ordered?: Yes Plan Plan Transient memory loss / R leg paresthesia - possibly 2/2 TIA, less likely 2/2 CVA - Patient presented to the emergency room with complaints of memory loss and right leg numbness and tingling that has resolved - Physical is unrevealing. No focal neurologic deficits noted - Lab work benign - CT head 06/20: 1. No acute intracranial pathology. ASPECTS score 10. 2. Partial opacification of inferior left mastoid air cells. - Will check MRI / MRA / Carotid duplex / ECHO / Telemetry monitoring / Cardiac risk profile - Will increase ASA to 325 / c/w Simvastatin COPD - Patient was reported to have shortness of breath. On arrival to emergency room - Physical currently does not reveal any wheezing on auscultation - c/w inhaled therapy as ordered JULIA on CPAP - May allow home CPAP use while inpatient RUE DVT - s/p Coumadin 6 months CAD s/p stent (2014) - c/w ASA and Atorvastatin Suspected arrhythmia / atrial fibrillation - c/w telemetry monitoring - c/w Amiodarone - Not on full anticoagulation HTN / CHF History - Allow for permissive hypertension between 140 and 180 and total MRI results - Discussed with , reported that he does have congestive heart failure - Will get ECHO - May require additional Lasix IV (awaiting MRI results) - Will hold Carvedilol / Furosemide DLP - Continue atorvastatin BPH - Continue Tamsulosin Obesity - BMI of the 138.6 - Complicating medical care Depression - Continue sertraline Hypothyroidism - Continue with levothyroxine GERD - Continue with omeprazole DVT prophylaxis - Will start SWATHI Lester MD Jun 21, 2020 01:27
[2020-06-21] MEDS ORDERED: IPRATROPIUM 0.5MG/ALBUTEROL 2.5MG INH SOL UD 3ML (DUONEB) NEB PRN (01:30)
[2020-06-21] MEDS: IPRATROPIUM 0.5MG/ALBUTEROL 2.5MG INH SOL UD 3ML (DUONEB) NEB SCH ×4 (02:00→19:31)
[2020-06-21 02:08] LABS: NT-PRO BNP 467 PG/ML (<125)
--- NOTE | 2020-06-21 02:52 | REPVR ---
PROCEDURE INFORMATION: Exam: US Duplex Bilateral Extracranial Arteries Exam date and time: 06/21/2020 2:24 AM Age: 70 years old Clinical indication: Altered mental status/memory loss and speech disturbance; Confusion or disorientation; Slurred speech; Additional info: TIA TECHNIQUE: Imaging protocol: Real-time Duplex ultrasound scan of the bilateral carotid and vertebral arteries combining salmeron scale, color Doppler and spectral waveform analysis. Bilateral exam. COMPARISON: CT Head without contrast 06/20/2020 7:28 PM FINDINGS: Right common carotid artery: Unremarkable. No occlusion or stenosis. Waveforms are normal. Right internal carotid artery: Unremarkable. No occlusion or stenosis. Waveforms are normal. Right ICA/CCA ratio: Within normal limits. Right external carotid artery: No stenosis in the origin. Right vertebral artery: Unremarkable. Antegrade flow. Left common carotid artery: Unremarkable. No occlusion or stenosis. Waveforms are normal. Left internal carotid artery: Unremarkable. No occlusion or stenosis. Waveforms are normal. Left ICA/CCA ratio: Within normal limits. Left external carotid artery: No stenosis in the origin. Left vertebral artery: Unremarkable. Antegrade flow. IMPRESSION: No carotid arterial stenosis. REFERENCES: SRU CRITERIA. The degree of internal carotid artery stenosis is based on criteria defined by the Society of Radiologists in Ultrasound (SRU). Normal is no stenosis. Mild is less than 50% stenosis. Moderate is 50-69% stenosis. Severe is greater than 69% stenosis to near occlusion. Near occlusion is a markedly narrowed lumen. Total occlusion is no detectable patent lumen. Electronically signed by: Vidal Lucas On 06/21/2020 02:52:27 AM
--- NOTE | 2020-06-21 03:25 | REPVR ---
PROCEDURE INFORMATION: Exam: MR Angiogram Head Without Contrast, Arteries Exam date and time: 06/21/2020 3:11 AM Age: 70 years old Clinical indication: Cognitive deficit; Altered mental status; Patient HX: Confusion and slurred speech that has since subsided, PT states nki and no priors; Additional info: TIA TECHNIQUE: Imaging protocol: MR angiogram head without contrast. Exam focused on the arteries. 3D rendering: MIP and/or 3D reconstructed images were created by the technologist. COMPARISON: CT Head without contrast 06/20/2020 7:28 PM FINDINGS: Anterior cerebral arteries: Intracranial segment is patent with no significant stenosis. No aneurysm. Right internal carotid artery: Intracranial segment is patent with no significant stenosis. No aneurysm. Right middle cerebral artery: No occlusion or significant stenosis. No aneurysm. Right posterior cerebral artery: No occlusion or significant stenosis. No aneurysm. Right vertebral artery: No occlusion or significant stenosis. No aneurysm. Left internal carotid artery: Intracranial segment is patent with no significant stenosis. No aneurysm. Left middle cerebral artery: No occlusion or significant stenosis. No aneurysm. Left posterior cerebral artery: No occlusion or significant stenosis. No aneurysm. Left vertebral artery: No occlusion or significant stenosis. No aneurysm. Basilar artery: No occlusion or significant stenosis. No aneurysm. IMPRESSION: No stenosis or occlusion. Electronically signed by: Vidal Lucas On 06/21/2020 03:24:49 AM
--- NOTE | 2020-06-21 03:27 | REPVR ---
PROCEDURE INFORMATION: Exam: MR Head Without Contrast Exam date and time: 06/21/2020 3:11 AM Age: 70 years old Clinical indication: Altered mental status/memory loss; Confusion or disorientation; Patient HX: Confusion and slurred speech that has since subsided, PT states nki and no priors; Additional info: TIA TECHNIQUE: Imaging protocol: MR of the head without contrast. COMPARISON: CT Head without contrast 06/20/2020 7:28 PM FINDINGS: Brain: Restricted diffusion involving left parietal lobe compatible with acute infarct. Ventricles: Normal. No ventriculomegaly. Bones/joints: Unremarkable. Sinuses: Normal as visualized. No acute sinusitis. Mastoid air cells: Normal as visualized. No mastoid effusion. Orbits: Unremarkable. Soft tissues: Unremarkable. IMPRESSION: Restricted diffusion involving left parietal lobe compatible with acute infarct. Electronically signed by: Vidal Lucas On 06/21/2020 03:26:52 AM
[2020-06-21] MEDS ORDERED: ASPIRIN 325 MG TAB PO ONE (05:15)
[2020-06-21 06:15] VITALS: BP 131/65
[2020-06-21] MEDS: LEVOTHYROXINE 50MCG TABLET (0.05MG) PO SCH (06:30)
[2020-06-21] MEDS: SYMBICORT 160/4.5MCG INHALER 6GM INH SCH ×2 (07:29→19:31)
[2020-06-21] MEDS ORDERED: ALBUTEROL 90 MCG/ACT 8GM HFA INHALER INH PRN (07:30)
--- NOTE | 2020-06-21 07:59 | ECGEPIP ---
[facility] - ED Test Date: 2020-06-20 Pat Name: JUDE CARLOS Department: Room: - Gender: Male Explosive Expert: arnulfo : 1950 Requested By: REYNOLD Stringer Order Number: [id number] Reading MD: Reynold Manley Measurements Intervals [place] Rate: 68 P: 17 MS: 180 QRS: -48 QRSD: 116 T: 61 QT: 415 QTc: 444 Interpretive Statements SINUS RHYTHM LOW QRS VOLTAGE IN PRECORDIAL LEADS POSSIBLE ANTERIOR MYOCARDIAL INFARCTION, OF INDETERMINATE AGE INFERIOR MYOCARDIAL INFARCTION, PROBABLY OLD Similar to tracing done 03-10-19 Electronically Signed on 06-21-2020 7:59:03 EDT by Reynold Manley
[2020-06-21 08:00] VITALS: BP 120/60
--- NOTE | 2020-06-21 08:20 | REP ---
Portable chest x-ray: Single view. History: Chest pain. Comparison study: March 10, 2019. Findings: The lungs are symmetrically aerated and free of infiltrate. There is minimal pleuroparenchymal scarring along the left heart border. There are degenerative changes in the glenohumeral articulations and the AC joints bilaterally. Degenerative disc disease changes are seen in the thoracic spine. Pulmonary vasculature is not increased. The heart is not enlarged. Impression: No active cardiopulmonary disease. Electronically Signed by Yakov Paulson MD 06/21/2020 08:12 A
[2020-06-21] MEDS: ASPIRIN 81 MG CHEW TABLET PO SCH (08:29)
[2020-06-21] MEDS: OMEPRAZOLE 20 MG CAP PO SCH (08:30)
[2020-06-21] MEDS: TAMSULOSIN 0.4 MG CAP PO SCH (08:30)
[2020-06-21] MEDS: FUROSEMIDE 40 MG TAB PO SCH ×2 (08:30→17:05)
[2020-06-21] MEDS: ATORVASTATIN 20 MG TAB PO SCH (08:30)
[2020-06-21] MEDS: CARVedilol 3.125 MG TAB PO SCH (08:30)
[2020-06-21] MEDS: ENOXAPARIN 40MG/0.4ML SYRINGE (J1650 PER 10MG) SC SCH (08:31)
[2020-06-21] MEDS: SERTRALINE HCL 50 MG TAB PO SCH (08:31)
[2020-06-21] MEDS: AMIODARONE 200 MG TAB (PACERONE) PO SCH (08:31)
[2020-06-21] MEDS ORDERED: PREVNAR 13 VACCINE SYRINGE IM SCH (09:00)
[2020-06-21 12:00] VITALS: BP 122/69
--- NOTE | 2020-06-21 13:54 | IPNPDOC ---
Text Note Date of Service The patient was seen on 06/21/20. NOTE Subjective: Patient stated that he feels much better today, he oriented, alert. Patient denied any focal weaknesses or numbness Objective: General: NAD HEENT: NC, AT, PERRLA, EOMI CVS: RRR, +S1S2, Lungs: Bilateral rales Abdomen: Soft, Non-distended, Non-tender, +Obese Extremities: 1+ pitting edema, No calf tenderness Neuro: No focal motor or sensory deficit Skin: No visible rashes Assessment and plan Patient is 70 years old male with past medical history of COPD, JULIA on CPAP, RUE DVT (s/p Coumadin 6 months), CAD s/p stent (2014), HTN, DLP, BPH, Obesity, Depression, Hypothyroidism presented to the hospital with transient memory loss and right leg paresthesia. Patient was found to have left parietal stroke. CVA MRI showed restricted diffusion involving left parietal lobe compatible with acute infarct. Patient has multiple risk factors including obesity, atherosclerosis, obstructive sleep apnea Continue statin and aspirin Echo Appreciate/agree with neurologist consult HTN Continue home cardioprotective medications Hyperlipidemia Continue pravastatin NIDDM2 Diabetes diet insulin sliding scale JULIA on CPAP Currently on CPAP daily at bedtime Depression c/w Amitriptyline Neuropathy c/w Gabapentin Chronic diastolic CHF Not in acute exacerbation Continue home cardioprotective medications VS,Fishbone, I+O VS, Fishbone, I+O Laboratory Tests 06/20/20 19:59 Vital Signs Date Time Temp Pulse Resp B/P (MAP) Pulse Ox O2 Delivery O2 Flow Rate FiO2 06/21/20 13:13 71 06/21/20 12:00 98.0 22 122/69 (86) 93 Room Air GILDA STODDARD DO Jun 21, 2020 13:54
[2020-06-21 16:00] VITALS: BP 130/59
--- NOTE | 2020-06-21 19:57 | ECHO ---
DATE OF PROCEDURE: 06/21/2020 REFERRING PHYSICIAN: Dr. Timi Tolentino INDICATION: Transient cerebral ischemia, unspecified. HEIGHT: 170 cm WEIGHT: 112 kg 2D MEASUREMENTS: Ventricular septum: 1.01 cm Posterior wall: 1.23 cm Proximal ascending aorta: 2.5 cm Aortic annulus: 2.2 cm Aortic root: 3.4 cm Left atrium: 3.7 cm Inferior vena cava: 1.9 cm with more than 50% respiratory variation. DOPPLER MEASUREMENTS: No aortic stenosis. No aortic regurgitation. Aortic valve velocity: 159 cm/s LVOT velocity: 55.5 cm/s Very mild mitral regurgitation. Mitral E velocity: 65.1 cm/s Mitral A velocity: 103 cm/s Mitral deceleration time: 214 ms No tricuspid regurgitation. Pulmonary acceleration time: 119 ms (normal). No pulmonic regurgitation. MITRAL ANNULAR TISSUE DOPPLER: E prime septal: 4.7 cm/s E prime lateral: 4.8 cm/s DESCRIPTION: Rhythm was sinus. This was a 2D, M-mode, color flow Doppler and pulse wave Doppler examination and included mitral annular tissue Doppler. This was a moderately technically difficult echocardiogram. CONCLUSIONS: 1. Normal left ventricle internal dimensions and wall thickness. Normal regional left ventricular (LV) wall motion and wall thickening. Normal LV systolic function. Left ventricular ejection fraction (LVEF) 60% by visual estimate. Grade 1 LV diastolic dysfunction (impaired relaxation filling pattern). 2. Mild mitral annular calcification. Very mild mitral regurgitation. 3. Very mild aortic valve sclerosis. No aortic regurgitation. 4. Moderately technically difficult echocardiogram Doppler. 5. Otherwise normal appearing echocardiogram Doppler findings.
[2020-06-21 20:00] VITALS: BP 136/62
[2020-06-21 20:13] VITALS: BP 131/69
[2020-06-22] MEDS: IPRATROPIUM 0.5MG/ALBUTEROL 2.5MG INH SOL UD 3ML (DUONEB) NEB SCH ×2 (02:00→07:15)
[2020-06-22] MEDS: LEVOTHYROXINE 50MCG TABLET (0.05MG) PO SCH (05:30)
[2020-06-22 06:00] VITALS: BP 132/70
[2020-06-22] MEDS: SYMBICORT 160/4.5MCG INHALER 6GM INH SCH (07:15)
[2020-06-22 07:22] LABS: BASO % 0.1 % (0.0-1.0); EOS % 0.3 % (0.0-3.0); HEMATOCRIT 44.6 % (42.0-52.0); LYMPH # 1.8 10^3/uL (1.5-5.0); LYMPH % 15.2 % (24.0-44.0); MEAN CORPUSCULAR HEMOGLOBIN 31.3 pg (27.0-33.0); MEAN CORPUSCULAR HGB CONC 33.6 g/dl (32.0-36.5); MEAN CORPUSCULAR VOLUME 93.1 fl (80.0-96.0); MONO # 0.7 10^3/uL (0.0-0.8); NEUTROPHILS # 9.2 10^3/uL (1.5-8.5); NEUTROPHILS % 77.9 % (36.0-66.0); PLATELET COUNT, AUTOMATED 218 10^3/uL (150-450); RED BLOOD COUNT 4.79 10^6/uL (4.30-6.10); WHITE BLOOD COUNT 11.7 10^3/uL (4.0-10.0)
[2020-06-22 07:40] LABS: BLOOD UREA NITROGEN 16 MG/DL (7-18); CALCIUM LEVEL 8.7 MG/DL (8.8-10.2); CARBON DIOXIDE LEVEL 32 MEQ/L (21-32); CHLORIDE LEVEL 102 MEQ/L (98-107); CHOLESTEROL LEVEL 153 MG/DL (<200); CHOLESTEROL RISK RATIO 2.781 (<5); CREATININE FOR GFR 0.92 MG/DL (0.70-1.30); GLOMERULAR FILTRATION RATE > 60.0 (>49); GLUCOSE, FASTING 90 MG/DL (70-100); HDL CHOLESTEROL 55 MG/DL (>40); LDL CHOLESTEROL 77 MG/DL (<100); MAGNESIUM LEVEL 2.3 MG/DL (1.8-2.4); NON-HDL-C 98 MG/DL; POTASSIUM SERUM 3.5 MEQ/L (3.5-5.1); SODIUM LEVEL 137 MEQ/L (136-145); TRIGLYCERIDES LEVEL 105 MG/DL (<150)
--- NOTE | 2020-06-22 08:59 | CR ---
DATE OF CONSULTATION: 06/21/2020 REFERRING PHYSICIAN: Anatoly Brown DO REASON FOR CONSULTATION: Stroke. HISTORY OF PRESENT ILLNESS: Kun Zamora is a 70-year-old man with history of coronary artery disease, DVT of right upper extremities, sleep apnea on C-PAP, congestive heart failure with ejection fraction around 20% per history and the patient was at his baseline state of health until 06/20/2020 when he felt sudden onset confusion. He states that he was working on his computer around 4:00 in the afternoon when he suddenly could not log onto his computer. He had trouble recalling names of his family members. He felt tingling of his left leg which resolved on its own. His noted slurred speech. His confusion and trouble speaking lasted for 4 hours and resolved on its own by 8:00 p.m.. Upon insistence of his family he came to emergency department for evaluation. By then his symptoms had completely resolved. He denied any headache, neck pain, back pain, dysphagia, diplopia, falls, loss of consciousness or seizures. He denies any head injuries. DIAGNOSTIC STUDIES: MRI scan of brain was reviewed and showed acute left parietal ischemic stroke. MRA brain and carotid ultrasound were reportedly unremarkable. PAST MEDICAL HISTORY: History of congestive heart failure and the patient states that he is scheduled for placement of AICD at [facility] in July 2020, he follows with his chip drier at [facility], COPD, hypothyroidism, sleep apnea history of DVT for which he was on Coumadin for 6 months, coronary artery disease status post stent, obesity, prostate enlargement, depression. CURRENT MEDICATIONS: - amiodarone 200 mg by mouth daily - aspirin 81 mg by mouth daily - Lipitor 80 mg half a tablet by mouth daily - Symbicort 160 / 4.5 mcg inhalation two puffs twice a day - carvedilol 3.125 mg by mouth daily - Lovenox 40 mg subcutaneous daily - Lasix 40 mg by mouth twice a day - levothyroxine 50 mcg by mouth daily - lisinopril 40 mg by mouth daily - omeprazole 20 mg by mouth daily - sertraline 150 mg by mouth daily - Flomax 0.4 mg by mouth daily - Combivent inhaler - albuterol inhaler as needed ALLERGIES: None. SOCIAL HISTORY: He quit smoking in 2018. He was a smoker of 50 years at two packs per day. He denies alcohol or illicit drugs. FAMILY HISTORY: Mother had brain tumor and father had heart disease. REVIEW OF SYSTEMS: All systems were reviewed and found to be noncontributory except as mentioned in history of present illness. PHYSICAL EXAMINATION: Temperature 98, pulse 97, respiratory rate 22, blood pressure 122/69. Heart: Regular rate and rhythm. Lungs: Clear to auscultation. Abdomen: Soft, nontender, nondistended. No pedal edema. No musculoskeletal abnormalities. No rash. No signs of meningeal irritation. The patient is awake, alert, oriented to place, person and time. He does appear to have few paraphasic errors during his speech testing. Comprehension seems intact. No facial weakness. Tongue and uvula are midline. Extraocular muscles are intact. No nystagmus. 5/5 strength in all four extremities. Normal sensation throughout. Gait is normal. There is no dysmetria or ataxia. Deep tendon reflexes are 1+ throughout. ASSESSMENT: 1. Acute left parietal ischemic stroke causing receptive aphasia with improvement. 2. History of coronary artery disease and cardiomyopathy. Patient states that he is scheduled for AICD placement in July 2020 and his ejection fraction is around 20%. 3. Dyslipidemia. PLAN: 1. Aspirin 325 mg by mouth daily and Lipitor 40 mg by mouth daily. 2. Echocardiogram and continue telemetry monitoring. 3. Fasting lipid profile. 4. Patient's chip drier should be contacted and will also know the results of his new echocardiogram. With his stroke and history of cardiomyopathy - pending confirmation, important question would be whether he should go on anticoagulation. Eliquis or Xarelto should be considered. I will leave that decision up to his chip drier. He is scheduled for placement of AICD next month. He should definitely contact his chip drier before his upcoming procedure if they would make any changes in his medications in terms of anticoagulation. 5. Follow with our office in 1-2 weeks after hospital discharge.
[2020-06-22] MEDS: ATORVASTATIN 20 MG TAB PO SCH (09:21)
[2020-06-22] MEDS: TAMSULOSIN 0.4 MG CAP PO SCH (09:21)
[2020-06-22] MEDS: ASPIRIN 81 MG CHEW TABLET PO SCH (09:21)
[2020-06-22] MEDS: FUROSEMIDE 40 MG TAB PO SCH (09:21)
[2020-06-22] MEDS: OMEPRAZOLE 20 MG CAP PO SCH (09:21)
[2020-06-22] MEDS: SERTRALINE HCL 50 MG TAB PO SCH (09:21)
[2020-06-22 09:22] VITALS: BP 125/68
[2020-06-22] MEDS: CARVedilol 3.125 MG TAB PO SCH (09:22)
[2020-06-22] MEDS: AMIODARONE 200 MG TAB (PACERONE) PO SCH (09:22)
[2020-06-22] MEDS: ENOXAPARIN 40MG/0.4ML SYRINGE (J1650 PER 10MG) SC SCH (09:27)
[2020-06-22] MEDS ORDERED: ASPI-1 PO ×2 (11:37→11:39)
--- NOTE | 2020-06-22 16:05 | DS.PDOC ---
Discharge Summary General Date of Admission Jun 21, 2020 at 01:09 Date of Discharge 06/22/20 Discharge Summary PROCEDURES PERFORMED DURING STAY: None ADMITTING DIAGNOSES: CVA Hyperlipidemia JULIA on CPAP Neuropathy Depression Chronic diastolic CHF DISCHARGE DIAGNOSES: CVA Hyperlipidemia JULIA on CPAP Neuropathy Depression Chronic diastolic CHF COMPLICATIONS/CHIEF COMPLAINT: Transient Ischemic Attack. HISTORY OF PRESENT ILLNESS: Kun Zamora is a 70-year-old man with history of coronary artery disease, DVT of right upper extremities, sleep apnea on C-PAP, congestive heart failure with ejection fraction around 20% per history and the patient was at his baseline state of health until 06/20/2020 when he felt sudden onset confusion. He states that he was working on his computer around 4:00 in the afternoon when he suddenly could not log onto his computer. He had trouble recalling names of his family members. He felt tingling of his left leg which resolved on its own. His noted slurred speech. His confusion and trouble speaking lasted for 4 hours and resolved on its own by 8:00 p.m.. Upon insistence of his family he came to emergency department for evaluation. By then his symptoms had completely resolved. He denied any headache, neck pain, back pain, dysphagia, diplopia, falls, loss of consciousness or seizures. He denies any head injuries. HOSPITAL COURSE: CVA MRI showed restricted diffusion involving left parietal lobe compatible with acute infarct. Patient has multiple risk factors including obesity, atherosclerosis, obstructive sleep apnea Continue statin and aspirin Echo see result below. Patient doesn't need AICD placement as was planned before. Ejection fraction 60%. Follow-up with local announcer in the outpatient settings, patient will need Holter monitor for 30 days. No atrial fibrillation on telemetry or EKG f/u with neurologist HTN Continue home cardioprotective medications Hyperlipidemia Continue pravastatin NIDDM2 Diabetes diet insulin sliding scale JULIA on CPAP Currently on CPAP daily at bedtime Depression c/w Amitriptyline Neuropathy c/w Gabapentin Chronic diastolic CHF Not in acute exacerbation Continue home cardioprotective medications DISCHARGE MEDICATIONS: Please see below. ALLERGIES: Please see below. PHYSICAL EXAMINATION ON DISCHARGE: VITAL SIGNS: Please see below. General: NAD HEENT: NC, AT, PERRLA, EOMI CVS: RRR, +S1S2, Lungs: Bilateral rales Abdomen: Soft, Non-distended, Non-tender, +Obese Extremities: 1+ pitting edema, No calf tenderness Neuro: No focal motor or sensory deficit Skin: No visible rashes LABORATORY DATA: Please see below. IMAGING:Findings discussed with Dr Tolentino at 3:29 a.m. on 06/21/2020 Electronically signed by: Vidal Shore On 06/21/2020 03:29:48 AM DD: VIDAL SHORE MD 06/21/20 0311 DT: VIOLET 06/21/20 0329 DS: ANJELICA 06/21/20 0329 PROCEDURE INFORMATION: Exam: MR Head Without Contrast Exam date and time: 06/21/2020 3:11 AM Age: 70 years old Clinical indication: Altered mental status/memory loss; Confusion or disorientation; Patient HX: Confusion and slurred speech that has since subsided, PT states nki and no priors; Additional info: TIA TECHNIQUE: Imaging protocol: MR of the head without contrast. COMPARISON: CT Head without contrast 06/20/2020 7:28 PM FINDINGS: Brain: Restricted diffusion involving left parietal lobe compatible with acute infarct. Ventricles: Normal. No ventriculomegaly. Bones/joints: Unremarkable. Sinuses: Normal as visualized. No acute sinusitis. Mastoid air cells: Normal as visualized. No mastoid effusion. Orbits: Unremarkable. Soft tissues: Unremarkable. IMPRESSION: Restricted diffusion involving left parietal lobe compatible with acute infarct. REFERRING PHYSICIAN: Dr. Timi Tolentino INDICATION: Transient cerebral ischemia, unspecified. HEIGHT: 170 cm WEIGHT: 112 kg 2D MEASUREMENTS: Ventricular septum: 1.01 cm Posterior wall: 1.23 cm Proximal ascending aorta: 2.5 cm Aortic annulus: 2.2 cm Aortic root: 3.4 cm Left atrium: 3.7 cm Inferior vena cava: 1.9 cm with more than 50% respiratory variation. DOPPLER MEASUREMENTS: No aortic stenosis. No aortic regurgitation. Aortic valve velocity: 159 cm/s LVOT velocity: 55.5 cm/s Very mild mitral regurgitation. Mitral E velocity: 65.1 cm/s Mitral A velocity: 103 cm/s Mitral deceleration time: 214 ms No tricuspid regurgitation. Pulmonary acceleration time: 119 ms (normal). No pulmonic regurgitation. MITRAL ANNULAR TISSUE DOPPLER: E prime septal: 4.7 cm/s E prime lateral: 4.8 cm/s DESCRIPTION: Rhythm was sinus. This was a 2D, M-mode, color flow Doppler and pulse wave Doppler examination and included mitral annular tissue Doppler. This was a moderately technically difficult echocardiogram. CONCLUSIONS: 1. Normal left ventricle internal dimensions and wall thickness. Normal regional left ventricular (LV) wall motion and wall thickening. Normal LV systolic function. Left ventricular ejection fraction (LVEF) 60% by visual estimate. Grade 1 LV diastolic dysfunction (impaired relaxation filling pattern). 2. Mild mitral annular calcification. Very mild mitral regurgitation. 3. Very mild aortic valve sclerosis. No aortic regurgitation. 4. Moderately technically difficult echocardiogram Doppler. PROGNOSIS: Fair ACTIVITY: [As tolerated]. DIET: Cardiac DISPOSITION: 01 Home, Self-Care. DISCHARGE INSTRUCTIONS: Following neurologist recommendations ITEMS TO FOLLOWUP ON ON OUTPATIENT: Follow-up with neurologist and local announcer. DISCHARGE CONDITION: [Stable]. TIME SPENT ON DISCHARGE: Greater than 40 minutes. Vital Signs/I&Os Vital Signs Date Time Temp Pulse Resp B/P (MAP) Pulse Ox O2 Delivery O2 Flow Rate FiO2 06/22/20 09:22 70 125/68 06/22/20 06:00 98.0 10 95 Room Air I&O- Last 24 Hours up to 6 AM 06/22/20 06:00 Intake Total 1170 ml Output Total 1900 ml Balance -730 ml Laboratory Data Labs 24H Laboratory Tests 2 06/22/20 06:17: Immature Granulocyte % (Auto) 0.5, Neutrophils (%) (Auto) 77.9H, Lymphocytes (%) (Auto) 15.2L, Monocytes (%) (Auto) 6.0H, Eosinophils (%) (Auto) 0.3, Basophils (%) (Auto) 0.1, Neutrophils # (Auto) 9.2H, Lymphocytes # (Auto) 1.8, Monocytes # (Auto) 0.7, Eosinophils # (Auto) 0.0, Basophils # (Auto) 0.0, Nucleated Red Blood Cells % (auto) 0.0, Anion Gap 3L, Glomerular Filtration Rate > 60.0, Calcium Level 8.7L, Magnesium Level 2.3, Triglycerides Level 105, Total Choleste rol 153, LDL Cholesterol 77, Non-HDL Cholesterol (LDL + VLDL) 98, Total HDL Cholesterol 55, Cholesterol/HDL Ratio 2.781 CBC/BMP Laboratory Tests 06/22/20 06:17 Discharge Medications Scheduled Aspirin (Aspirin) 325 Mg Tablet, 1 TAB PO DAILY for cva Atorvastatin Calcium (Atorvastatin Calcium) 80 Mg Tab, 40 MG PO DAILY, (Reported) Budesonide/Formoterol (Symbicort 160-4.5 Mcg Inhaler) 60 Puff/Inhaler Aers, 2 PUFF INH BID, (Reported) Carvedilol (Carvedilol) 3.125 Mg Tablet, 3.125 MG PO DAILY, (Reported) Furosemide (Furosemide) 40 Mg Tab, 40 MG PO BID, (Reported) Levothyroxine Sodium (Levothyroxine Sodium) 50 Mcg Tab, 50 MCG PO DAILY, (Reported) Lisinopril (Lisinopril) 40 Mg Tab, 20 MG PO DAILY, (Reported) Omeprazole (Omeprazole) 20 Mg Cap, 20 MG PO DAILY, (Reported) Sertraline HCl (Sertraline HCl) 100 Mg Tab, 150 MG PO DAILY, (Reported) Tamsulosin HCl (Flomax) 0.4 Mg Cap, 0.4 MG PO DAILY, (Reported) Scheduled PRN Albuterol Sulfate (Ventolin Hfa) 108 Mcg/Act Aer, 2 PUFF INH Q6H PRN for SHORTNESS OF BREATH, (Reported) Ipratropium/Albuterol Sulfate (Iprat-Albut 0.5-3(2.5) mg/3 ml) 3 Ml Ampul.neb, 3 ML INH QID PRN for SHORTNESS OF BREATH, (Reported) Allergies Coded Allergies: No Known Allergies (Unverified , 03/10/19) GILDA STODDARD DO Jun 22, 2020 16:05
== END 2020-06-22 12:30 | disposition home or self-care (01) | DRG 65 ==
LOC: M ED 19:16 → M ED INP 06-21 01:09 → ENRESERV 06-21 03:10 → M ICU 06-21 06:01 → M MSPAV 06-21 20:08
PROVIDERS: ADMIT Internal Medicine; ATTEND Internal Medicine
DX: I63.9 Cerebral infarction, unspecified (principal); I50.32 Chronic diastolic (congestive) heart failure; I42.9 Cardiomyopathy, unspecified; E78.5 Hyperlipidemia, unspecified; G47.33 Obstructive sleep apnea (adult) (pediatric); G62.9 Polyneuropathy, unspecified; F32.9 Major depressive disorder, single episode, unspecified; I25.10 Atherosclerotic heart disease of native coronary artery without angina pectoris; Z86.718 Personal history of other venous thrombosis and embolism; E66.9 Obesity, unspecified; Z79.899 Other long term (current) drug therapy; Z79.82 Long term (current) use of aspirin; J44.9 Chronic obstructive pulmonary disease, unspecified; Z79.01 Long term (current) use of anticoagulants; I11.0 Hypertensive heart disease with heart failure; E03.9 Hypothyroidism, unspecified; N40.0 Benign prostatic hyperplasia without lower urinary tract symptoms; Z87.891 Personal history of nicotine dependence; K21.9 Gastro-esophageal reflux disease without esophagitis; E11.40 Type 2 diabetes mellitus with diabetic neuropathy, unspecified

== ENCOUNTER 2021-02-22 13:17 | Emergency (ER) | payer MEDICARE, OTHER ==
[~2021-02-22 13:17] MED LIST changes: +AMIO200T3 PO; +ASPI-1 PO; +CARV3.12 PO; +ENOX40IN3 SC; +IPRA0.00 INH; -LISI-538 PO; +LISI20TA33 PO; -LISI40TA PO; +LISI40TA4 PO
[2021-02-22] MEDS ORDERED: dexameTHASONE 20MG/5ML VIAL (J1100 PER 1MG) As Ordered ONE (15:28)
[2021-02-22] MEDS ORDERED: PRED10TA2 PO (16:35)
--- NOTE | 2021-02-22 17:06 | REP ---
INDICATION: SOB. COMPARISON: 06/20/2020. TECHNIQUE: SINGLE PORTABLE AP VIEW OF THE CHEST WAS PERFORMED. FINDINGS: There is no acute infiltrate or pulmonary edema. There is slight enlargement of the cardiac silhouette. Mediastinal silhouette is unremarkable. There is a left single lead pacemaker. IMPRESSION: NO ACUTE PULMONARY DISEASE. <Electronically signed by Curtis Smith > 02/22/21 [id number]
[2021-02-22 17:28] LABS: BLOOD UREA NITROGEN 15 MG/DL (7-18); CALCIUM LEVEL 8.5 MG/DL (8.8-10.2); CARBON DIOXIDE LEVEL 30 MEQ/L (21-32); CHLORIDE LEVEL 108 MEQ/L (98-107); CREATININE FOR GFR 0.84 MG/DL (0.70-1.30); GLOMERULAR FILTRATION RATE > 60.0 (>49); GLUCOSE, FASTING 105 MG/DL (70-100); POTASSIUM SERUM 4.3 MEQ/L (3.5-5.1); SODIUM LEVEL 142 MEQ/L (136-145)
[2021-02-22 17:42] LABS: HEMATOCRIT 42.5 % (42.0-52.0); HEMOGLOBIN 14.6 g/dl (13.5-17.5); MEAN CORPUSCULAR HEMOGLOBIN 31.8 pg (27.0-33.0); MEAN CORPUSCULAR HGB CONC 34.4 g/dl (32.0-36.5); MEAN CORPUSCULAR VOLUME 92.6 fl (80.0-96.0); PLATELET COUNT, AUTOMATED 213 10^3/uL (150-450); RED BLOOD COUNT 4.59 10^6/uL (4.30-6.10)
--- NOTE | 2021-02-23 09:28 | ECGEPIP ---
[facility] Test Date: 2021-02-22 Pat Name: JUDE CARLOS Department: Room: - Gender: Male [employer]: darwin : 1950 Requested By: Harsh Cristina Order Number: [id number] Reading MD: Aaron Mathias Measurements Intervals [place] Rate: 68 P: 55 CO: 180 QRS: -48 QRSD: 120 T: 68 QT: 444 QTc: 472 Interpretive Statements Normal sinus rhythm Left axis deviation Low voltage QRS throughout Inferior infarct, occurred in 04/2015 Anterior infarct , age undetermined Nonspecific ST-T wave abnormalities No significant change when compared to prior tracing of 06/20/2020 Electronically Signed on 02-23-2021 9:28:20 EDT by Aaron Mathias
== END 2021-02-22 17:04 | disposition home or self-care (01) ==
LOC: M ED 13:17
DX: J44.1 Chronic obstructive pulmonary disease with (acute) exacerbation (principal); I50.9 Heart failure, unspecified; I25.2 Old myocardial infarction; G47.33 Obstructive sleep apnea (adult) (pediatric); E66.9 Obesity, unspecified; Z99.89 Dependence on other enabling machines and devices; Z95.5 Presence of coronary angioplasty implant and graft; Z87.891 Personal history of nicotine dependence; Z79.899 Other long term (current) drug therapy; Z79.82 Long term (current) use of aspirin; Z79.890 Hormone replacement therapy

== ENCOUNTER → 2022-01-04 | Outpatient (CLI) | payer OTHER ==
[~2022-01-04] MED LIST changes: -AMIO200T3 PO; +AMIO200T49 PO; +DOXY-443 PO; -DOXY100C37 PO
== END ==
LOC: M RAD 14:18
PROVIDERS: ATTEND Family Medicine
DX: R91.8 Other nonspecific abnormal finding of lung field (principal)

== ENCOUNTER → 2022-09-19 | Outpatient (REF) | payer OTHER ==
[2022-09-19 15:48] LABS: APPEARANCE, URINE MANUAL CLEAR (CLEAR); BILIRUBIN, URINE MANUAL NEGATIVE (NEGATIVE); COLOR, URINE MANUAL YELLOW (YELLOW); GLUCOSE, URINE (UA) MANUAL NEGATIVE (NEGATIVE); KETONE, URINE MANUAL NEGATIVE (NEGATIVE); UROBILINOGEN, URINE MANUAL NORMAL (NORMAL)
[2022-09-19 15:49] LABS: BLOOD URINE MANUAL NEGATIVE (NEGATIVE); LEUKOCYTE ESTERASE, URINE MAN NEGATIVE (NEGATIVE); NITRITE, URINE MANUAL NEGATIVE (NEGATIVE); PROTEIN, URINE MANUAL NEGATIVE (NEGATIVE)
== END ==
LOC: M SFHCADAM 13:00
PROVIDERS: ATTEND Nurse Practitioner Women's Health
DX: Z12.5 Encounter for screening for malignant neoplasm of prostate (principal); N40.0 Benign prostatic hyperplasia without lower urinary tract symptoms
CPT/HCPCS: 81002; 87086; G0103

== ENCOUNTER 2024-01-18 10:35 | Emergency (ER) | payer OTHER ==
[~2024-01-18] VITALS: Ht 172.7 cm; Wt 114.4 kg
[2024-01-18] MEDS ORDERED: NAPR220C14 PO (12:34)
[2024-01-18 14:28] LABS: BASO % 0.4 % (0.0-1.0); EOS # 0.1 10^3/uL (0.0-0.5); EOS % 0.7 % (0.0-3.0); HEMATOCRIT 45.8 % (42.0-52.0); LYMPH # 2.1 10^3/uL (1.5-5.0); LYMPH % 21.8 % (24.0-44.0); MEAN CORPUSCULAR HEMOGLOBIN 30.8 pg (27.0-33.0); MEAN CORPUSCULAR HGB CONC 34.9 g/dl (32.0-36.5); MEAN CORPUSCULAR VOLUME 88.1 fl (80.0-96.0); MONO # 0.6 10^3/uL (0.0-0.8); MONO % 5.8 % (2.0-8.0); NEUTROPHILS # 6.8 10^3/uL (1.5-8.5); NEUTROPHILS % 71.1 % (36.0-66.0); PLATELET COUNT, AUTOMATED 245 10^3/uL (150-450); WHITE BLOOD COUNT 9.6 10^3/uL (4.0-10.0)
[2024-01-18 14:52] LABS: BLOOD UREA NITROGEN 14 MG/DL (9-23); CALCIUM LEVEL 8.7 MG/DL (8.3-10.6); CARBON DIOXIDE LEVEL 34 MMOL/L (20-31); CHLORIDE LEVEL 100 MMOL/L (98-107); CREATININE FOR GFR 0.89 MG/DL (0.70-1.30); GLOMERULAR FILTRATION RATE > 60.0 (>42); GLUCOSE, FASTING 90 MG/DL (74-106); POTASSIUM SERUM 3.2 MMOL/L (3.5-5.1); SODIUM LEVEL 138 MMOL/L (136-145)
[2024-01-18 15:20] VITALS: BP 109/56; TEMP 98; O2SAT 94
[2024-01-18 15:20] LABS: INR 1.17; PROTHROMBIN TIME 14.6 SECONDS (12.5-14.5)
[2024-01-18 15:21] LABS: PARTIAL THROMBOPLASTIN TIME 23.7 SECONDS (24.8-34.2)
[2024-01-18] MEDS: dexAMETHasone 20MG/5ML VIAL IV ONE (15:38)
[2024-01-18] MEDS: GABAPENTIN 300 MG CAP PO ONE (15:38)
[2024-01-18] MEDS: KETOROLAC 30 MG/ML 1ML VIAL IV ONE (15:38)
[2024-01-18] MEDS ORDERED: METH-1164 PO (16:07)
[2024-01-18] MEDS ORDERED: MEDR4TAB PO (16:07)
[2024-01-18] MEDS ORDERED: NAPR-837 PO (16:07)
== END 2024-01-18 16:21 | disposition home or self-care (01) ==
LOC: M ED 10:35
DX: M54.32 Sciatica, left side (principal); N43.3 Hydrocele, unspecified; E87.6 Hypokalemia; I10 Essential (primary) hypertension; J44.9 Chronic obstructive pulmonary disease, unspecified; E03.9 Hypothyroidism, unspecified; N40.0 Benign prostatic hyperplasia without lower urinary tract symptoms; K21.9 Gastro-esophageal reflux disease without esophagitis; M51.26 Other intervertebral disc displacement, lumbar region; I25.2 Old myocardial infarction; Z86.718 Personal history of other venous thrombosis and embolism; Z86.79 Personal history of other diseases of the circulatory system; Z79.52 Long term (current) use of systemic steroids; Z79.02 Long term (current) use of antithrombotics/antiplatelets; Z79.83 Long term (current) use of bisphosphonates; Z79.899 Other long term (current) drug therapy; Z79.01 Long term (current) use of anticoagulants
CPT/HCPCS: 36415; 72110; 73502; 76870; 80048; 81001; 85025; 85610; 85730; 93970; 96374; 99284; J1100; J1885

== ENCOUNTER 2024-05-04 08:27 | Day surgery (SDC) | payer OTHER ==
[~2024-05-04] VITALS: Ht 170.2 cm; Wt 112.5 kg
[~2024-05-04 08:27] MED LIST changes: +AMIO200T37 PO; +DOXY-323 PO; -DOXY-443 PO; +ENTR1TAB PO; +FLON1SPR; +JARD1TAB3 PO; +MEDR4TAB PO; +METH-1164 PO; +NAPR-837 PO; +NAPR220C14 PO; +POTA-141 PO; +VITA100093 PO; +ZOLO100T PO
[2024-05-04] MEDS: LR 1,000 ML IV SCH (09:31)
[2024-05-04] MEDS ORDERED: propofoL 200 MG/20 ML VIAL As Ordered ONE (10:14)
[2024-05-04] MEDS ORDERED: LIDOCAINE 2% 100MG/5ML SDV (FOR ANES.) As Ordered ONE (10:14)
[2024-05-04] MEDS ORDERED: ETOMIDATE INJ 20MG/10ML VIAL As Ordered ONE (10:27)
[2024-05-04] MEDS: ALBUTEROL SULFATE 2.5MG/0.5ML INH NEB SOLN NEB ONE (10:43)
[2024-05-04] MEDS ORDERED: fentaNYL 100 MCG/2 ML INJECTION As Ordered ONE (10:47)
[2024-05-04] MEDS: ceFAZolin SOD 2 GM in IV 1 EA IV ONE (11:20)
[2024-05-04] MEDS ORDERED: ACETAMINOPHEN 1000MG 100ML IV BAG As Ordered ONE (11:26)
[2024-05-04] MEDS ORDERED: ONDANSETRON 4MG 2ML VIAL As Ordered ONE (11:54)
[2024-05-04] MEDS ORDERED: KETOROLAC 60MG 2ML VIAL As Ordered ONE (11:54)
[2024-05-04] MEDS: LIDOCAINE 2% MDV 20ML VIAL As Ordered ONE (11:57)
[2024-05-04] MEDS ORDERED: HYDR-3713 PO (12:14)
[2024-05-04] MEDS ORDERED: CEPH500C PO (12:14)
[2024-05-04] MEDS ORDERED: HYDROMORPHONE HCL 0.5 MG/ 0.5 ML SYRINGE IV PRN (12:30)
[2024-05-04] MEDS ORDERED: LR 1,000 ML IV SCH (12:30)
[2024-05-04] MEDS ORDERED: fentaNYL 100 MCG/2 ML INJECTION IV PRN (12:30)
[2024-05-04] MEDS ORDERED: oxyCODONE 5MG TAB PO PRN (12:30)
[2024-05-04] MEDS ORDERED: ONDANSETRON 4MG 2ML VIAL IV PRN (12:30)
[2024-05-04 13:10] VITALS: BP 104/57; TEMP 97.6; O2SAT 95
== END 2024-05-04 13:30 | disposition home or self-care (01) ==
LOC: M SDC 08:27
PROVIDERS: ATTEND Urology
DX: N43.3 Hydrocele, unspecified (principal); I25.10 Atherosclerotic heart disease of native coronary artery without angina pectoris; Z95.5 Presence of coronary angioplasty implant and graft; I25.2 Old myocardial infarction; Z95.810 Presence of automatic (implantable) cardiac defibrillator; I11.0 Hypertensive heart disease with heart failure; I50.9 Heart failure, unspecified; G47.30 Sleep apnea, unspecified; Z86.73 Personal history of transient ischemic attack (TIA), and cerebral infarction without residual deficits; F43.10 Post-traumatic stress disorder, unspecified; E78.00 Pure hypercholesterolemia, unspecified; E03.9 Hypothyroidism, unspecified; K21.9 Gastro-esophageal reflux disease without esophagitis; Z86.718 Personal history of other venous thrombosis and embolism; R60.0 Localized edema; J44.9 Chronic obstructive pulmonary disease, unspecified; N40.0 Benign prostatic hyperplasia without lower urinary tract symptoms; F41.9 Anxiety disorder, unspecified; F32.A Depression, unspecified; Z79.899 Other long term (current) drug therapy; Z79.890 Hormone replacement therapy; Z79.82 Long term (current) use of aspirin; Z87.891 Personal history of nicotine dependence
CPT/HCPCS: 54512; 54640; 55040; 88302; J0131; J0665; J0690; J1100; J1885; J2405; J3010

== ENCOUNTER → 2025-06-17 | Outpatient (REF) | payer OTHER ==
[~2025-06-17] MED LIST changes: -AMIO200T49 PO; +AMIO200T54 PO; +CEPH500C PO; -DOXY-323 PO; +DOXY-441 PO; +HYDR-3713 PO; +LISI40TA10 PO; -LISI40TA4 PO; +TAMS-18 PO
== END ==
LOC: M LABWUC 17:40
PROVIDERS: ATTEND Urology
DX: N40.0 Benign prostatic hyperplasia without lower urinary tract symptoms (principal); Z12.5 Encounter for screening for malignant neoplasm of prostate
CPT/HCPCS: 36415; G0103

== ENCOUNTER → 2025-06-30 | Outpatient (CLI) | payer OTHER ==
[2025-07-02 10:56] LABS: PSA % FREE 31.0 % (calc) (>25); PSA FREE 0.4 ng/mL; PSA TOTAL 1.3 ng/mL (< OR = 4.0)
== END ==
LOC: M WUC 08:27
PROVIDERS: ATTEND Urology
DX: R97.20 Elevated prostate specific antigen [PSA] (principal)

== ENCOUNTER → 2025-10-26 | Outpatient (CLI) | payer OTHER | LOC: M SLEEP 20:00 | PROVIDERS: ATTEND Nurse Practitioner Family | DX: G47.33 Obstructive sleep apnea (adult) (pediatric) (principal) ==